=== PATIENT | female | born 1955 | race American Indian/Alaskan Native ===

== ENCOUNTER 2019-04-23 20:46 | Inpatient (IN) | payer BC ==
--- NOTE | 2019-04-23 21:08 | Event Note ---
ED Screening Note Date of service: 04/23/19 Time: 21:04 ED Screening Note: This is a 63 y.o. F. that presents to the ER with slurred speech for 2 days. Patient reports left sided facial numbness. This initial assessment/diagnostic orders/clinical plan/treatment(s) is/are subject to change based on patients health status, clinical progression and re- assessment by fellow clinical providers in the ED. Further treatment and workup at subsequent clinical providers discretion. Patient/guardian urged not to elope from the ED as their condition may be serious if not clinically assessed and managed. Initial orders include: Labs, EKG, and CT of head.
[2019-04-23 21:58] LABS: INR 1.1 (0.87-1.13)
[2019-04-23 21:59] LABS: Partial Thromboplastin Time 29.2 Sec. (24.2-36.6)
--- NOTE | 2019-04-23 22:06 | Cat Scan Report ---
CT HEAD WITHOUT CONTRAST INDICATION / CLINICAL INFORMATION: neuro deficits <6hrs or sx present upon awakening. Patient reports facial paresthesias and slurred sp eech. TECHNIQUE: All CT scans at this location are performed using CT dose reduction for ALARA by means of automated e xposure control. COMPARISON: None available. FINDINGS: HEMORRHAGE: No evidence of intracranial hemorrhage or extra-axial fluid collection. EXTRA-AXIAL SPACES: Cortical sulci, sylvian fissures and basilar cisterns have an unremarkable appear ance. VENTRICULAR SYSTEM: Mild minimal asymmetry of the lateral ventricles is noted, right larger than left . The ventricular system has an otherwise unremarkable appearance. CEREBRAL PARENCHYMA: There is a well-circumscribed area of decreased attenuation in the left ganglioc apsular region measuring about 2.7 x 1.5 x 1.2 cm in overall dimension. This likely represents a suba cute or chronic infarction. There is no associated mass effect. There is no evidence of hemorrhagic t ransformation. MIDLINE SHIFT OR HERNIATION: There is no mass effect. CEREBELLUM / BRAINSTEM: Brainstem and cerebellum have an unremarkable appearance. INTRACRANIAL VESSELS:No abnormalities are identified on this noncontrast head CT. ORBITS: visualized portions of the orbits have an unremarkable appearance. SOFT TISSUES of HEAD: No significant abnormality. CALVARIUM: Evaluation of bone windows reveals no abnormalities. PARANASAL SINUSES / MASTOID AIR CELLS: Paranasal sinuses are free from inflammatory mucosal disease. Mastoid air cells are normally pneumatized. ADDITIONAL FINDINGS: None. IMPRESSION: 1. 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 This may be either subacute, subacute or chron ic. Correlation with magnetic resonance imaging to include diffusion-weighted scans would be useful f or more accurately dating this finding if clinically warranted. 2. Otherwise negative head CT without contrast. Signer Name: Camacho Torres MD Signed: 04/23/2019 10:01 PM Workstation Name: [id number]
--- NOTE | 2019-04-23 22:11 | Emergency Department Report ---
ED Neuro Deficit HPI - General Chief Complaint: Neuro Symptoms/Deficit Stated Complaint: SLURRED SPEECH Time Seen by Provider: 04/23/19 21:04 Source: patient Mode of arrival: Ambulatory Limitations: No Limitations - History of Present Illness Initial Comments: 63-year-old female presents to ED with 2 day history of slurred speech. Patient denies any previous medical problems, denies having a PCP. Patient denies any headache, dizziness, extremity weakness or numbness. -: days(s) (2) Location: speech Presenting Symptoms: Present: Unable to Speak Clearly History of same: No Severity: moderate Improves With: none Worsens With: none On Anticoagulants: No Associated Symptoms: denies other symptoms. denies: chest pain, headaches, nausea/vomiting, shortness of breath Treatments Prior to Arrival: none - Related Data Home Medications: Home Medications Medication Instructions Recorded Confirmed Last Taken No Known Home Medications [No 04/23/19 04/23/19 Unknown Reported Home Medications] Allergies/Adverse Reactions: Allergies Allergy/AdvReac Type Severity Reaction Status Date / Time No Known Allergies Allergy Verified 04/23/19 20:52 ED Review of Systems ROS: Stated complaint: SLURRED SPEECH Other details as noted in HPI Comment: All other systems reviewed and negative Constitutional: denies: chills, fever Respiratory: denies: shortness of breath Cardiovascular: denies: chest pain Gastrointestinal: denies: nausea, vomiting Neurological: denies: headache, weakness ED Past Medical Hx - Past Medical History Previous Medical History?: No - Surgical History Past Surgical History?: No - Social History Smoking Status: Never Smoker Substance Use Type: None - Medications Home Medications: Home Medications Medication Instructions Recorded Confirmed Last Taken Type No Known Home Medications [No 04/23/19 04/23/19 Unknown History Reported Home Medications] ED Neuro Physical Exam - General Limitations: No Limitations General appearance: alert, in no apparent distress Suspected Stroke: Yes - Head Head exam: Present: atraumatic, normocephalic - Eye Eye exam: Present: normal appearance, PERRL, EOMI - ENT ENT exam: Present: mucous membranes moist - Neck Neck exam: Present: normal inspection - Respiratory Respiratory exam: Present: normal lung sounds bilaterally. Absent: respiratory distress - Cardiovascular Cardiovascular Exam: Present: normal rhythm, tachycardia - GI/Abdominal GI/Abdominal exam: Present: soft. Absent: distended, tenderness - Extremities Exam Extremities exam: Present: normal inspection - Neurological Exam Neurological exam: Present: alert, oriented X3 - NIHSS Assessment Interval: Baseline 1a. Level of Consciousness: alert/keenly responsive 1b. LOC Questions: answers both correctly 1c. LOC Commands: performs tasks correctly 2. Best Gaze: normal 3. Visual: no visual loss 4. Facial Palsy: partial paralysis 5b. Motor Arm Right: no drift 5a. Motor Arm Left: no drift 6a. Motor Leg Left: no drift 6b. Motor Leg Right: no drift 7. Limb Ataxia: absent 8. Sensory: normal 9. Best Language: no aphasia 10. Dysarthria: mild/moderate dysarthria 11. Extinction/Inattention: no abnormality Total Score: 3 Stroke Severity: Minor Stroke - Psychiatric Psychiatric exam: Present: normal affect, normal mood - Skin Skin exam: Present: warm, dry, intact, normal color ED Course Vital Signs 04/23/19 04/23/19 04/23/19 20:52 22:11 22:14 Temperature 100.4 F H Pulse Rate 105 H 85 Respiratory 16 16 16 Rate Blood Pressure 200/103 Blood Pressure 173/76 [Left] O2 Sat by Pulse 95 97 Oximetry - Lab Data Result diagrams: 04/23/19 21:32 04/23/19 21:32 Lab Results 04/23/19 04/23/19 04/23/19 Range/Units 21:32 21:32 21:32 WBC 11.9 H (4.5-11.0) K/mm3 RBC 4.58 (3.65-5.03) M/mm3 Hgb 12.7 (10.1-14.3) gm/dl Hct 38.0 (30.3-42.9) % MCV 83 (79-97) fl MCH 28 (28-32) pg MCHC 34 (30-34) % RDW 13.5 (13.2-15.2) % Plt Count 165 (140-440) K/mm3 Lymph % (Auto) 26.7 (13.4-35.0) % [place] % (Auto) 8.1 H (0.0-7.3) % Eos % (Auto) 3.2 (0.0-4.3) % Baso % (Auto) 0.5 (0.0-1.8) % Lymph # 3.2 (1.2-5.4) K/mm3 [place]agher # 1.0 H (0.0-0.8) K/mm3 Eos # 0.4 (0.0-0.4) K/mm3 Baso # 0.1 (0.0-0.1) K/mm3 Seg Neutrophils % 61.5 (40.0-70.0) % Seg Neutrophils # 7.3 (1.8-7.7) K/mm3 PT 13.9 (12.2-14.9) Sec. INR 1.10 (0.87-1.13) APTT 29.2 (24.2-36.6) Sec. Thrombin Time (15.1-19.6) Sec. Sodium 139 (137-145) mmol/L Potassium 3.2 L (3.6-5.0) mmol/L Chloride 98.6 (98-107) mmol/L Carbon Dioxide 27 (22-30) mmol/L Anion Gap 17 mmol/L BUN 12 (7-17) mg/dL Creatinine 0.9 (0.7-1.2) mg/dL Estimated GFR > 60 ml/min BUN/Creatinine Ratio 13 % Glucose 126 H (65-100) mg/dL Calcium 9.2 (8.4-10.2) mg/dL Troponin T < 0.010 (0.00-0.029) ng/mL 04/23/19 Range/Units 21:32 WBC (4.5-11.0) K/mm3 RBC (3.65-5.03) M/mm3 Hgb (10.1-14.3) gm/dl Hct (30.3-42.9) % MCV (79-97) fl MCH (28-32) pg MCHC (30-34) % RDW (13.2-15.2) % Plt Count (140-440) K/mm3 Lymph % (Auto) (13.4-35.0) % [place] % (Auto) (0.0-7.3) % Eos % (Auto) (0.0-4.3) % Baso % (Auto) (0.0-1.8) % Lymph # (1.2-5.4) K/mm3 Meagher # (0.0-0.8) K/mm3 Eos # (0.0-0.4) K/mm3 Baso # (0.0-0.1) K/mm3 Seg Neutrophils % (40.0-70.0) % Seg Neutrophils # (1.8-7.7) K/mm3 PT (12.2-14.9) Sec. INR (0.87-1.13) APTT (24.2-36.6) Sec. Thrombin Time 14.6 L (15.1-19.6) Sec. Sodium (137-145) mmol/L Potassium (3.6-5.0) mmol/L Chloride (98-107) mmol/L Carbon Dioxide (22-30) mmol/L Anion Gap mmol/L BUN (7-17) mg/dL Creatinine (0.7-1.2) mg/dL Estimated GFR ml/min BUN/Creatinine Ratio % Glucose (65-100) mg/dL Calcium (8.4-10.2) mg/dL Troponin T (0.00-0.029) ng/mL - EKG Data -: EKG Interpreted by Tx EKG shows normal: sinus rhythm, axis, intervals, QRS complexes Rate: normal Interpretation: nonspecific ST-T wave armand - Radiology Data Radiology results: report reviewed, image reviewed - Medical Decision Making 63 yo F w/ slurred speech, onset 2 days ago. On exam, pt is dysarthric, has right-sided facial droop. Strength and sensation intact in extremities. Pt is not a tPA candidate as onset of symptoms [address] Head shows left gangliocapsular infarct. Will admit to hospitalist, Dr Vides, for further management. - Differential Diagnosis ischemic CVA, hemorrhagic CVA Critical care attestation.: If time is entered above; I have spent that time in minutes in the direct care of this critically ill patient, excluding procedure time. ED Disposition Clinical Impression: CVA (cerebral vascular accident) Disposition: DC-09 OP ADMIT IP TO THIS HOSP Is pt being admited?: Yes Condition: Stable
[2019-04-23 22:15] LABS: Basophils # (Auto) 0.1 K/mm3 (0.0-0.1); Basophils % (Auto) 0.5 % (0.0-1.8); Eosinophils # (Auto) 0.4 K/mm3 (0.0-0.4); Eosinophils % (Auto) 3.2 % (0.0-4.3); Hemoglobin 12.7 gm/dl (10.1-14.3); Lymphocytes # (Auto) 3.2 K/mm3 (1.2-5.4); Lymphocytes % (Auto) 26.7 % (13.4-35.0); Mean Corpuscular HGB Conc 34 % (30-34); Mean Corpuscular Volume 83 fl (79-97); Monocytes % (Auto) 8.1 % (0.0-7.3); Platelet Count 165 K/mm3 (140-440); Red Blood Count 4.58 M/mm3 (3.65-5.03); Red Cell Distribution Width 13.5 % (13.2-15.2)
[2019-04-23 22:23] LABS: BUN/Creatinine Ratio 13; Blood Urea Nitrogen 12 mg/dL (7-17); Calcium 9.2 mg/dL (8.4-10.2); Hemolysis Index 4
[2019-04-23] MEDS ORDERED: ASPIRIN PO ONE (22:45)
[2019-04-24] MEDS ORDERED: K-DUR PO ONE (00:06)
[2019-04-24] MEDS ORDERED: APRESOLINE IV PRN (00:37)
[2019-04-24] MEDS ORDERED: SODIUM CHLORIDE FLUSH SYRINGE 10 ML IV PRN (00:38)
[2019-04-24] MEDS ORDERED: MILK OF MAGNESIA PO PRN (00:38)
[2019-04-24] MEDS ORDERED: REGLAN PO PRN (00:38)
[2019-04-24] MEDS ORDERED: ZOFRAN IV PRN (00:38)
[2019-04-24] MEDS ORDERED: DULCOLAX PR PRN (00:38)
--- NOTE | 2019-04-24 00:55 | History and Physical Report ---
History of Present Illness Date of examination: 04/24/19 Date of admission: 04/24/2019 Chief complaint: Speech, right facial droop History of present illness: 63-year-old -[place] female with no significant past medical history who presents to [facility] ED with complaints of slurred speech and right facial droop. Patient states that she went to bed on Monday night time she was in her usual state of health. Upon waking up Monday morning she noticed that her speech was slurred, her face was on even and her body movements were slower than normal. Patient states that her son also confirmed that her speech and symmetry of the face was altered. After 2 days with no improvement of symptoms she decided to come into the ED for further evaluation and treatment. Patient states she does not have a primary care physician and has not seen a medical provider in over 30 years. Denies: n/v/d, fever, headache, alterations in vision, chest pain, or recent sick contact Past History Past Surgical History: No surgical history Social history: lives with family (lives with son) Family history: stroke (sister CVA, HTN) Medications and Allergies Allergies Allergy/AdvReac Type Severity Reaction Status Date / Time No Known Allergies Allergy Verified 04/23/19 20:52 Home Medications Medication Instructions Recorded Confirmed Last Taken Type No Known Home Medications [No 04/23/19 04/23/19 Unknown History Reported Home Medications] Active Meds: Active Medications Acetaminophen (Tylenol) 650 mg PO Q4H PRN PRN Reason: Pain, Mild (1-3) Amlodipine Besylate (Norvasc) 10 mg PO QDAY DIANA Aspirin (Aspirin) 325 mg PO QDAY DIANA Atorvastatin Calcium (Lipitor) 40 mg PO QHS DIANA Bisacodyl (Dulcolax) 10 mg [place] QDAY PRN PRN Reason: Constipation Docusate Sodium (Colace) 100 mg PO BID DIANA Enoxaparin Sodium (Lovenox) 40 mg SUB-Q QDAY DIANA Hydralazine HCl (Apresoline) 10 mg IV Q4HR PRN PRN Reason: Blood Pressure Magnesium Hydroxide (Milk Of Magnesia) 30 ml PO Q4H PRN PRN Reason: Constipation Metoclopramide HCl (Reglan) 10 mg PO Q6H PRN PRN Reason: Nausea And Vomiting Ondansetron HCl (Zofran) 4 mg IV Q8H PRN PRN Reason: Nausea And Vomiting Sodium Chloride (Sodium Chloride Flush Syringe 10 Ml) 10 ml INJ PRN PRN PRN Reason: LINE FLUSH Review of Systems All systems: negative Neurological: change in speech, other (right facial droop) Exam - Physical Exam Narrative exam: Physical exam General appearance: Present: No acute distress, alert and oriented 3, obese, well-developed -[place] adult female, right-sided facial droop - EENT Eyes: Present: PERRL, EOM ENT: hearing intact, normal dentition - Neck Neck: Present: supple, normal ROM - Respiratory Respiratory effort: Non-labored Respiratory: CTA bilaterally - Cardiovascular Heart rate: 88 (bpm) Rhythm: SR nonspecific ST-T wave changes Heart Sounds: Present: S1 & S2. Absent: rub, click - Extremities Extremities: no ischemia, pulses intact, - Peripheral Assessment Peripheral Pulses: within normal limits - Abdominal General gastrointestinal: soft, non-tender, normal bowel sounds - Integumentary Integumentary: Present: warm, dry - Musculoskeletal Musculoskeletal: normal gait -Neurological Neurological: CN II-XII grossly intact - Psychiatric Psychiatric: cooperative - Constitutional Vitals: Temp Pulse Resp BP Pulse Ox 100.4 F H 85 16 157/66 96 04/23/19 20:52 04/24/19 00:28 04/24/19 00:28 04/24/19 00:28 04/24/19 00:28 Results - Labs CBC & Chem 7: 04/23/19 21:32 04/23/19 21:32 Labs: Laboratory Last Values WBC 11.9 K/mm3 (4.5-11.0) H 04/23/19 21:32 RBC 4.58 M/mm3 (3.65-5.03) 04/23/19 21:32 Hgb 12.7 gm/dl (10.1-14.3) 04/23/19 21:32 Hct 38.0 % (30.3-42.9) 04/23/19 21:32 MCV 83 fl (79-97) 04/23/19 21:32 MCH 28 pg (28-32) 04/23/19 21:32 MCHC 34 % (30-34) 04/23/19 21:32 RDW 13.5 % (13.2-15.2) 04/23/19 21:32 Plt Count 165 K/mm3 (140-440) 04/23/19 21:32 Lymph % (Auto) 26.7 % (13.4-35.0) 04/23/19 21:32 [place] % (Auto) 8.1 % (0.0-7.3) H 04/23/19 21:32 Eos % (Auto) 3.2 % (0.0-4.3) 04/23/19 21:32 Baso % (Auto) 0.5 % (0.0-1.8) 04/23/19 21:32 Lymph # 3.2 K/mm3 (1.2-5.4) 04/23/19 21:32 [place] # 1.0 K/mm3 (0.0-0.8) H 04/23/19 21:32 Eos # 0.4 K/mm3 (0.0-0.4) 04/23/19 21:32 Baso # 0.1 K/mm3 (0.0-0.1) 04/23/19 21:32 Seg Neutrophils % 61.5 % (40.0-70.0) 04/23/19 21:32 Seg Neutrophils # 7.3 K/mm3 (1.8-7.7) 04/23/19 21:32 PT 13.9 Sec. (12.2-14.9) 04/23/19 21:32 INR 1.10 (0.87-1.13) 04/23/19 21:32 APTT 29.2 Sec. (24.2-36.6) 04/23/19 21:32 14.6 Sec. (15.1-19.6) L 04/23/19 21:32 Sodium 139 mmol/L (137-145) 04/23/19 21:32 Potassium 3.2 mmol/L (3.6-5.0) L 04/23/19 21:32 Chloride 98.6 mmol/L (98-107) 04/23/19 21:32 Carbon Dioxide 27 mmol/L (22-30) 04/23/19 21:32 17 mmol/L 04/23/19 21:32 BUN 12 mg/dL (7-17) 04/23/19 21:32 0.9 mg/dL (0.7-1.2) 04/23/19 21:32 Estimated GFR > 60 ml/min 04/23/19 21:32 13 % 04/23/19 21:32 Glucose 126 mg/dL (65-100) H 04/23/19 21:32 Calcium 9.2 mg/dL (8.4-10.2) 04/23/19 21:32 < 0.010 ng/mL (0.00-0.029) 04/23/19 21:32 - Imaging and Cardiology Imaging and Cardiology: FINDINGS: HEMORRHAGE: No evidence of intracranial hemorrhage or extra-axial fluid collection. EXTRA-AXIAL SPACES: Cortical sulci, sylvian fissures and basilar cisterns have an unremarkable appearance. VENTRICULAR SYSTEM: Mild minimal asymmetry of the lateral ventricles is noted, right larger than left. The ventricular system has an otherwise unremarkable appearance. CEREBRAL PARENCHYMA: There is a well-circumscribed area of decreased attenuation in the left gangliocapsular region measuring about 2.7 x 1.5 x 1.2 cm in overall dimension. This likely represents a subacute or chronic infarction. There is no associated mass effect. There is no evidence of hemorrhagic transformation. MIDLINE SHIFT OR HERNIATION: There is no mass effect. CEREBELLUM / BRAINSTEM: Brainstem and cerebellum have an unremarkable appearance. INTRACRANIAL VESSELS:No abnormalities are identified on this noncontrast head CT. ORBITS: visualized portions of the orbits have an unremarkable appearance. SOFT TISSUES of HEAD: No significant abnormality. CALVARIUM: Evaluation of bone windows reveals no abnormalities. PARANASAL SINUSES / MASTOID AIR CELLS: Paranasal sinuses are free from inflammatory mucosal disease. Mastoid air cells are normally pneumatized. ADDITIONAL FINDINGS: None. IMPRESSION: 1. 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 This may be either subacute, subacute or chronic. Correlation with magnetic resonance imaging to include diffusion-weighted scans would be useful for more accurately dating this finding if clinically warranted. 2. Otherwise negative head CT without contrast. Assessment and Plan Assessment and plan: 63-year-old -[place] female with no significant past medical history who presents to [facility] ED with complaints of slurred speech and right facial droop. Patient states that she went to bed on Monday night time she was in her usual state of health. Upon waking up Monday morning she noticed that her speech was slurred, her face was on even and her body movements were slower than normal. Patient states that her son also confirmed that her speech and symmetry of the face was altered. After 2 days with no improvement of symptoms she decided to come into the ED for further evaluation and treatment. Patient states she does not have a primary care physician and has not seen a medical provider in over 30 years. CVA -Initiate is stroke protocol -Initiate neuro checks per protocol -Slurred speech and rt facial droop -Not candidate for TPA; symptoms started 2 days ago -No need to allow for permissive HTN -CT Head showed Left gangliocapsular deep infarction -MRI/MRA Head/Brain, bilateral carotid Doppler, and echo pending -Neurology consult pending -PT/OT eval pending Hypertension -Continue to monitor BP -Hx of HTN non compliant with antihypertensive meds; pt has not seen PCP in over 30 yrs -Start Norvasc 10mg daily -IV hydralazine when necessary Leukocytosis -WBC 11.9 -TMAX 100.4 -Blood and Urine Culture pending -Will consider start abx pending UA and CXR Hypokalemia -3.2 on admission -Repleted -Continue to monitor electrolytes, replete prn DVT PPX -On Lovenox -On SCD's Advance Directives: No VTE prophylaxis?: Chemical Plan of care discussed with patient/family: Yes
[2019-04-24 01:27] LABS: Amphetamine Screen,Urine PRESUMPTIVE NEGATIVE; Benzodiazepines Screen,Urine PRESUMPTIVE NEGATIVE; Cannabinoid Screen,Urine PRESUMPTIVE NEGATIVE; Cocaine Screen,Urine PRESUMPTIVE NEGATIVE; Methadone Screen,Urine PRESUMPTIVE NEGATIVE; Opiate Screen,Urine PRESUMPTIVE NEGATIVE
[2019-04-24 01:30] LABS: Bilirubin,Urine NEG (Negative); Blood,Urine NEG (Negative); Color,Urine Yellow (Yellow); Urobilinogen,Urine < 2.0 mg/dL (<2.0)
[2019-04-24 01:37] LABS: Mucus,Urine Few /HPF; RBC,Urine < 1.0 /HPF (0.0-6.0); WBC,Urine < 1.0 /HPF (0.0-6.0)
--- NOTE | 2019-04-24 03:47 | XRay Report ---
CHEST 2 VIEWS 0047 INDICATION / CLINICAL INFORMATION: Slurred speech, right facial droop COMPARISON: None available. FINDINGS: SUPPORT DEVICES: None. HEART / MEDIASTINUM: No significant abnormality. LUNGS / PLEURA: No significant pulmonary or pleural abnormality. No pneumothorax. ADDITIONAL FINDINGS: No significant additional findings. IMPRESSION: No significant acute abnormality Signer Name: Devonte Gerardo MD Signed: 04/24/2019 3:43 AM Workstation Name: [id number]
[2019-04-24] MEDS ORDERED: ASPIRIN PO SCH (10:00)
--- NOTE | 2019-04-24 13:39 | Vascular Lab Report ---
BILATERAL CAROTID DOPPLER ULTRASOUND INDICATION : stroke TECHNIQUE: Grayscale and color Doppler imaging performed through the neck. COMPARISON: None FINDINGS: Right: There is moderate soft plaque in the carotid bulb. Peak systolic velocity in the CCA is 66 c m/s with end-diastolic velocity of 20 cm/s. Peak systolic velocity in the proximal ICA is 91 cm/s wit h end-diastolic velocity of 35 cm/s. ICA to CCA ratio is less than 2. There is antegrade flow in the ECA and the vertebral artery. Left: There is no significant atherosclerotic disease. Peak systolic velocity in the CCA is 82 cm/s w ith end-diastolic velocity of 17 cm/s. Peak systolic velocity in the proximal ICA is 104 cm/s with en d-diastolic velocity of 37 cm/s. ICA to CCA ratio is less than 2. There is antegrade flow in the ECA and the vertebral artery. IMPRESSION: No hemodynamically significant stenosis by NASCET criteria. There is less than 50% lumina l narrowing throughout both carotid systems. Signer Name: Isaac House Jr, MD Signed: 04/24/2019 1:35 PM Workstation Name: [id number]
[2019-04-24] MEDS: LOVENOX SUB-Q SCH (14:09)
[2019-04-24] MEDS: NORVASC PO SCH (14:09)
[2019-04-24] MEDS: COLACE PO SCH ×2 (14:09→22:02)
--- NOTE | 2019-04-24 15:05 | Magnetic Resonance Report ---
MRI BRAIN WITHOUT CONTRAST INDICATION / CLINICAL INFORMATION: stroke. TECHNIQUE: Multisequence, multiplanar images were obtained. COMPARISON: CT head dated 04/23/2019 FINDINGS: CEREBRAL and CEREBELLAR HEMISPHERES: A 2.0 x 1.9 x 2.1 cm area of diffusion restriction is identified in the left ganglial capsular region consistent with subacute ischemia. This infarct extends from th e left subinsular region to the left ruvalcaba radiata. No acute hemorrhage. Minimal nonspecific chroni c periventricular white matter changes are also identified which probably represent chronic microvasc ular ischemic change. No chronic infarct. No extra-axial fluid collection. VENTRICLES: Normal in size and configuration for age. VISUALIZED ORBITS: No significant abnormality. VISUALIZED PARANASAL SINUSES: No significant abnormality. ADDITIONAL FINDINGS: None. IMPRESSION: 2.0 x 1.9 x 2.1 cm area of subacute ischemia in the left ganglial capsular region. No evidence for he morrhage. No significant change since the CT dated 04/23/2019. MRA HEAD WITHOUT CONTRAST HISTORY: Stroke COMPARISON: None. TECHNIQUE: Routine MRA of the head is performed. 3-D/MIP reformats postprocessed. CONTRAST: None. FINDINGS: Intracranial vertebral arteries: No significant abnormality. Basilar artery: No significant abnormality. Posterior cerebral arteries: No significant abnormality. Intracranial internal carotid arteries: No significant abnormality. Anterior cerebral arteries: No significant abnormality. Middle cerebral arteries: No significant abnormality. Additional findings: None. IMPRESSION: Unremarkable MRA head. No large vessel occlusion, high-grade stenosis or aneurysm is identified. Signer Name: Isaac House Jr, MD Signed: 04/24/2019 3:00 PM Workstation Name: [id number]
--- NOTE | 2019-04-24 15:05 | Consultation ---
History of Present Illness Consult date: 04/24/19 Reason for Consult: Stroke Chief complaint: Slurred speech, facial droop History of present illness: Patient is a 63-year-old woman with no past medical history, and has not been to a physician in several years. The patient awoke Monday morning with symptoms of right facial droop and slurred speech. Patient was ultimately brought to the ER for further evaluation by family. Patient notably had a 100.4 fever during the course of this admission thus far. Symptoms have not significantly changed since onset on Monday. Past History Past Surgical History: No surgical history Social history: lives with family (lives with son) Family history: stroke (sister CVA, HTN) Medications and Allergies Allergies Allergy/AdvReac Type Severity Reaction Status Date / Time No Known Allergies Allergy Verified 04/23/19 20:52 Home Medications Medication Instructions Recorded Confirmed Last Taken Type No Known Home Medications [No 04/23/19 04/23/19 Unknown History Reported Home Medications] Active Meds: Active Medications Acetaminophen (Tylenol) 650 mg PO Q4H PRN PRN Reason: Pain, Mild (1-3) Amlodipine Besylate (Norvasc) 10 mg PO QDAY [facility] Last Admin: 04/24/19 14:09 Dose: 10 mg Documented by: Aspirin (Aspirin) 325 mg PO QDAY [facility] Last Admin: 04/24/19 14:09 Dose: 325 mg Documented by: Atorvastatin Calcium (Lipitor) 40 mg PO QHS [facility] Bisacodyl (Dulcolax) 10 mg MD QDAY PRN PRN Reason: Constipation Docusate Sodium (Colace) 100 mg PO BID [facility] Last Admin: 04/24/19 14:09 Dose: 100 mg Documented by: Enoxaparin Sodium (Lovenox) 40 mg SUB-Q QDAY [facility] Last Admin: 04/24/19 14:09 Dose: 40 mg Documented by: Hydralazine HCl (Apresoline) 10 mg IV Q4H PRN PRN Reason: Blood Pressure Magnesium Hydroxide (Milk Of Magnesia) 30 ml PO Q4H PRN PRN Reason: Constipation Metoclopramide HCl (Reglan) 10 mg PO Q6H PRN PRN Reason: Nausea And Vomiting Ondansetron HCl (Zofran) 4 mg IV Q8H PRN PRN Reason: Nausea And Vomiting Sodium Chloride (Sodium Chloride Flush Syringe 10 Ml) 10 ml IV PRN PRN PRN Reason: LINE FLUSH Review of Systems All systems: negative Neurological: change in speech Physical Examination - Vital Signs Vital Signs: Vital Signs Temp Pulse Resp BP Pulse Ox 100.4 F H 105 H 16 200/103 95 04/23/19 20:52 04/23/19 20:52 04/23/19 20:52 04/23/19 20:52 04/23/19 20:52 - Physical Exam Narrative exam: Patient is awake, alert, oriented is 4. Follows complex commands. Noted to have significant dysarthria. No aphasia noted. Pupils equal, round, reactive to light, visual aaron full, tongue midline, noted to have right facial droop, bilaterally intact to light touch. Right upper and lower extremity strength is 4/5, left upper and lower extremity strength is 5 out of 5. Bilaterally intact to light touch. Bilaterally intact to finger to nose and heel to silver. Reflexes 2+ throughout. - Constitutional General appearance: comfortable - EENT EENT: Present: ATNC, PERRL, mucous membranes moist, hearing intact, vision intact - Respiratory Respiratory: Present: lungs clear, normal breath sounds - Cardiovascular Cardiovascular: Present: regular rate, normal S1, normal S2 Extremities: Present: no peripheral edema bilatateraly, no clubbing, cyanosis - Gastrointestinal Gastrointestinal: Present: normoactive bowel sounds, soft, non-tender - Integumentary Integumentary: Present: normal - Psychiatric Psychiatric: Present: mood/affect appropriate - Level of Consciousness 1a. Level of Consciousness: alert/keenly responsive - LOC Questions 1b. LOC Questions: answers both correctly - LOC Command 1c. LOC Commands: performs tasks correctly - Best Gaze 2. Best Gaze: normal - Visual 3. Visual: no visual loss - Facial Palsy 4. Facial Palsy: minor paralysis - Motor Arm 5a. Motor Arm Left: no drift 5b. Motor Arm Right: no drift - Motor Leg 6a. Motor Leg Left: no drift 6b. Motor Leg Right: no drift - Limb Ataxia 7. Limb Ataxia: absent - Sensory 8. Sensory: normal - Best Language 9. Best Language: no aphasia - Dysarthria 10. Dysarthria: mild/moderate dysarthria - Extinction and Inattention 11. Extinction/Inattention: no abnormality - Scoring Total Score: 2 Stroke Severity: Minor Stroke Results - Laboratory Findings CBC and BMP: 04/23/19 21:32 04/23/19 21:32 Abnormal Lab Findings: Abnormal Labs 04/23/19 04/23/19 04/23/19 21:32 21:32 21:32 WBC 11.9 H [place] % (Auto) 8.1 H [place] # 1.0 H Thrombin Time 14.6 L Potassium 3.2 L Glucose 126 H Assessment and Plan Patient is a 63-year-old woman with no status past medical history, who presents with a 2 day history of slurred speech and right facial droop. According patient's clinical findings, the patient has an acute ischemic stroke. MRI rev ealed left subcortical stroke. Plan: 1. Stroke: - MRI revealed left subcortical stroke. MRA did not reveal any significant stenosis in the anterior circulation, has mild to moderate stenosis noted in the left [employer]IAN. Carotid ultrasound did not reveal any significant stenosis. Echocardiogram pending. - As patient was noted to have increased white cell count and a fever on admission, depending on results of TTE, will consider patient for KEMAR to evaluate for possibility of endocarditis. - Aspirin 81 mg daily. Atorvastatin 40 mg daily. PT/OT/ST Telemetry monitoring while in-house. Lipid profile pending. Check hemoglobin A1c. DVT prophylaxis: Recommend Lovenox. 2. Blood pressure: - Recommend target of normotension, as it has been >48 hours since onset of symptoms. - Will continue to follow patient. Thank you for allowing me to take part in the care of this patient. Steffen Santos MD Neurology
--- NOTE | 2019-04-24 18:46 | Event Note ---
Date: 04/24/19 63-year-old -Monegas[place] female with no significant past medical history who presents to [facility] ED with complaints of slurred speech and right facial droop. Patient states that she went to bed on Monday night time she was in her usual state of health. Upon waking up Monday morning she noticed that her speech was slurred, her face was on even and her body movements were slower than normal. Patient states that her son also confirmed that her speech and symmetry of the face was altered. After 2 days with no improvement of symptoms she decided to come into the ED for further evaluation and treatment. Patient states she does not have a primary care physician and has not seen a medical provider in over 30 years. CVA -Initiate is stroke protocol -Initiate neuro checks per protocol -Slurred speech and rt facial droop -Not candidate for TPA; symptoms started 2 days ago -No need to allow for permissive HTN -CT Head showed Left gangliocapsular deep infarction -MRI/MRA Head/Brain, bilateral carotid Doppler, and echo pending -Neurology consult pending -PT/OT eval pending Hypertension -Continue to monitor BP -Hx of HTN non compliant with antihypertensive meds; pt has not seen PCP in over 30 yrs -Start Norvasc 10mg daily -IV hydralazine when necessary Leukocytosis -WBC 11.9 -TMAX 100.4 -Blood and Urine Culture pending -Will consider start abx pending UA and CXR Hypokalemia -3.2 on admission -Repleted -Continue to monitor electrolytes, replete prn DVT PPX -On Lovenox -On SCD's
[2019-04-24] MEDS: TYLENOL PO PRN (22:02)
[2019-04-25 06:02] LABS: Chol/HDL Ratio 3.18 %
[2019-04-25 07:28] LABS: Basophils % (Auto) 0.6 % (0.0-1.8); Eosinophils # (Auto) 0.5 K/mm3 (0.0-0.4); Eosinophils % (Auto) 5.5 % (0.0-4.3); Hemoglobin 11.6 gm/dl (10.1-14.3); Lymphocytes # (Auto) 2.3 K/mm3 (1.2-5.4); Lymphocytes % (Auto) 27.8 % (13.4-35.0); Mean Corpuscular HGB Conc 34 % (30-34); Mean Corpuscular Volume 82 fl (79-97); Monocytes # (Auto) 0.7 K/mm3 (0.0-0.8); Monocytes % (Auto) 8.3 % (0.0-7.3); Red Blood Count 4.13 M/mm3 (3.65-5.03); Red Cell Distribution Width 13.7 % (13.2-15.2)
[2019-04-25 08:21] LABS: Platelet Count 170 K/mm3 (140-440)
[2019-04-25] MEDS: COLACE PO SCH ×2 (10:11→22:07)
[2019-04-25] MEDS: HALFPRIN EC PO SCH (10:11)
[2019-04-25] MEDS: LOVENOX SUB-Q SCH (10:12)
[2019-04-25] MEDS: NORVASC PO SCH (10:12)
--- NOTE | 2019-04-25 10:48 | Progress Note ---
Assessment and Plan Patient is a 63-year-old woman with no status past medical history, who presents with a 2 day history of slurred speech and right facial droop. According patient's clinical findings, the patient has an acute ischemic stroke. MRI revealed left subcortical stroke. Plan: 1. Stroke: - MRI revealed left subcortical stroke. MRA did not reveal any significant stenosis in the anterior circulation, has mild stenosis noted in the left [employer] FUNDRAISER. Carotid ultrasound did not reveal any significant stenosis. Echocardiogram: EF 50-55%, LA normal size, bubble study -ve. - Uncertain as to etiology of stroke, may be cryptogenic vs lacunar, however only has mild white matter disease on FLAIR sequence, which further raises possibility of embolic stroke. - As patient was noted to have increased white cell count and a fever on admission, recommend patient for KEMAR to evaluate for possibility of endocarditis. - Aspirin 81 mg daily. Atorvastatin 40 mg daily. PT/OT/ST Telemetry monitoring while in-house. LDL 77 Hemoglobin A1c 5.7. DVT prophylaxis: Recommend Lovenox. 2. Blood pressure: - Recommend target of normotension, as it has been >48 hours since onset of symptoms. - Will continue to follow patient. Thank you for allowing me to take part in the care of this patient. Steffen Santos MD Neurology Subjective Date of service: 04/25/19 Principal diagnosis: Stroke Interval history: No acute events overnight. Objective - Exam Narrative Exam: Patient is awake, alert, oriented is 4. Follows complex commands. Noted to have dysarthria. No aphasia noted. Pupils equal, round, reactive to light, visual aaron full, tongue midline, noted to have right facial droop, b ilaterally intact to light touch. Right upper and lower extremity strength is 4/5, left upper and lower extremity strength is 5 out of 5. Bilaterally intact to light touch. Bilaterally intact to finger to nose and heel to silver. Reflexes 2+ throughout. - Vital Sign Vital Signs - 12hr 04/25/19 04/25/19 04/25/19 00:00 04:00 04:12 Temperature 98.3 F 98.6 F Pulse Rate 74 70 70 Respiratory 16 16 Rate Blood Pressure 152/78 Blood Pressure 168/56 [Right] O2 Sat by Pulse 95 97 Oximetry 04/25/19 04/25/19 08:43 10:12 Temperature 98.6 F Pulse Rate 77 77 Respiratory 20 Rate Blood Pressure 143/71 143/71 Blood Pressure [Right] O2 Sat by Pulse 95 Oximetry - General Apperance Constitutional: comfortable - EENT EENT: ATNC, PERRL, mucous membranes moist, hearing intact, vision intact - Respiratory Respiratory: lungs clear, normal breath sounds - Cardiovascular Cardiovascular: regular rate, normal S1, normal S2 Extremities: no peripheral edema bilat, no clubbing, cyanosis - Gastrointestinal Gastrointestinal: normoactive bowel sounds, soft, non-tender - Integumentary Integumentary: normal - Psychiatric Psychiatric: mood/affect appropriate - Laboratory Findings CBC and BMP: 04/25/19 07:07 04/25/19 05:05 Abnormal Lab Findings: Abnormal Labs 04/23/19 04/23/19 04/23/19 21:32 21:32 21:32 WBC 11.9 H [place] % (Auto) 8.1 H Eos % (Auto) [place] # 1.0 H Eos # Thrombin Time 14.6 L Potassium 3.2 L Glucose 126 H HDL Cholesterol 04/25/19 04/25/19 05:05 07:07 WBC [place] % (Auto) 8.3 H Eos % (Auto) 5.5 H [place] # Eos # 0.5 H Thrombin Time Potassium Glucose HDL Cholesterol 38 L
--- NOTE | 2019-04-25 11:46 | Progress Note ---
Assessment and Plan Assessment and plan: --Acute ischemic Lt CVA Right-sided weakness, Not a candidate for TPA Aspirin and statin Workup so far: CT head; left gangliocapsular infarction, subacute versus acute or chronic MRI brain; 2.0 x 1.9 x 2.1 cm subacute ischemia of the left ganglia capsular region no hemorrhage MRA brain; unremarkable study, no large vessel occlusion Carotid Doppler; hemodynamically significant stenosis, less than 50% stenosis Echocardiogram; EF 50-55% Neurology following, recommend KEMAR to r/o endocarditis [patient had low-grade fever on admission, and mild leukocytosis resolved] Cultures negative to date --Hypertension; moderate control Continue current antihypertensives and when necessary medications --Dyslipidemia; statin --Hypokalemia; corrected --DVT PPX; Lovenox Consults and recommendations noted and appreciated History Interval history: Patient seen and examined medical records reviewed The patient feels slightly better, states significantly improved Neuro workup was reviewed, neurologist recommend KEMAR To rule out endocarditis Patient is alert awake oriented Vital signs noted Hospitalist Physical - Constitutional Vitals: Temp Pulse Resp BP Pulse Ox 98.6 F 77 20 143/71 95 04/25/19 08:43 04/25/19 10:12 04/25/19 08:43 04/25/19 10:12 04/25/19 08:43 General appearance: Present: no acute distress, well-nourished - EENT Eyes: Present: PERRL, EOM intact - Neck Neck: Present: supple, normal ROM - Respiratory Respiratory effort: normal Respiratory: bilateral: diminished, negative: rales, rhonchi, wheezing - Cardiovascular Rhythm: regular Heart Sounds: Present: S1 & S2 - Extremities Extremities: no ischemia, No edema - Abdominal General gastrointestinal: soft, non-tender, non-distended, normal bowel sounds - Integumentary Integumentary: Present: clear, warm - Psychiatric Psychiatric: appropriate mood/affect, cooperative - Neurologic Neurologic: other (acute CVA with right-sided weakness, dysarthria s ignificantly improved) Results - Labs CBC & Chem 7: 04/25/19 07:07 04/25/19 05:05 Labs: Laboratory Last Values WBC 8.4 K/mm3 (4.5-11.0) 04/25/19 07:07 RBC 4.13 M/mm3 (3.65-5.03) 04/25/19 07:07 Hgb 11.6 gm/dl (10.1-14.3) 04/25/19 07:07 Hct 34.0 % (30.3-42.9) 04/25/19 07:07 MCV 82 fl (79-97) 04/25/19 07:07 MCH 28 pg (28-32) 04/25/19 07:07 MCHC 34 % (30-34) 04/25/19 07:07 RDW 13.7 % (13.2-15.2) 04/25/19 07:07 Plt Count 170 K/mm3 (140-440) 04/25/19 07:07 Lymph % (Auto) 27.8 % (13.4-35.0) 04/25/19 07:07 [place] % (Auto) 8.3 % (0.0-7.3) H 04/25/19 07:07 Eos % (Auto) 5.5 % (0.0-4.3) H 04/25/19 07:07 Baso % (Auto) 0.6 % (0.0-1.8) 04/25/19 07:07 Lymph # 2.3 K/mm3 (1.2-5.4) 04/25/19 07:07 [place] # 0.7 K/mm3 (0.0-0.8) 04/25/19 07:07 Eos # 0.5 K/mm3 (0.0-0.4) H 04/25/19 07:07 Baso # 0.0 K/mm3 (0.0-0.1) 04/25/19 07:07 Seg Neutrophils % 57.8 % (40.0-70.0) 04/25/19 07:07 Seg Neutrophils # 4.9 K/mm3 (1.8-7.7) 04/25/19 07:07 PT 13.9 Sec. (12.2-14.9) 04/23/19 21:32 INR 1.10 (0.87-1.13) 04/23/19 21:32 APTT 29.2 Sec. (24.2-36.6) 04/23/19 21:32 14.6 Sec. (15.1-19.6) L 04/23/19 21:32 Sodium 139 mmol/L (137-145) 04/23/19 21:32 Potassium 3.6 mmol/L (3.6-5.0) 04/25/19 05:05 Chloride 98.6 mmol/L (98-107) 04/23/19 21:32 Carbon Dioxide 27 mmol/L (22-30) 04/23/19 21:32 17 mmol/L 04/23/19 21:32 BUN 12 mg/dL (7-17) 04/23/19 21:32 0.9 mg/dL (0.7-1.2) 04/23/19 21:32 Estimated GFR > 60 ml/min 04/23/19 21:32 13 % 04/23/19 21:32 Glucose 126 mg/dL (65-100) H 04/23/19 21:32 5.7 % (4-6) 04/24/19 15:26 Calcium 9.2 mg/dL (8.4-10.2) 04/23/19 21:32 < 0.010 ng/mL (0.00-0.029) 04/24/19 02:43 Triglycerides 91 mg/dL (2-149) 04/25/19 05:05 Cholesterol 121 mg/dL (50-199) 04/25/19 05:05 77 mg/dL (50-130) 04/25/19 05:05 38 mg/dL (40-59) L 04/25/19 05:05 3.18 % 04/25/19 05:05 Yellow (Yellow) 04/24/19 00:58 Slightly-cloudy (Clear) 04/24/19 00:58 5.0 (5.0-7.0) 04/24/19 00:58 Ur Specific [place] 1.026 (1.003-1.030) 04/24/19 00:58 30 mg/dl mg/dL (Negative) 04/24/19 00:58 Neg mg/dL (Negative) 04/24/19 00:58 Tr mg/dL (Negative) 04/24/19 00:58 Neg (Negative) 04/24/19 00:58 Neg (Negative) 04/24/19 00:58 Neg (Negative) 04/24/19 00:58 < 2.0 mg/dL (<2.0) 04/24/19 00:58 Ur Leukocyte Esterase Tr (Negative) 04/24/19 00:58 < 1.0 /HPF (0.0-6.0) 04/24/19 00:58 < 1.0 /HPF (0.0-6.0) 04/24/19 00:58 U Epithel Cells (Auto) 3.0 /HPF (0-13.0) 04/24/19 00:58 Few /HPF 04/24/19 00:58 Presumptive negative 04/24/19 00:58 Presumptive negative 04/24/19 00:58 Ur Barbiturates Screen Presumptive negative 04/24/19 00:58 Ur Phencyclidine Scrn Presumptive negative 04/24/19 00:58 Ur Amphetamines Screen Presumptive negative 04/24/19 00:58 U Benzodiazepines Scrn Presumptive negative 04/24/19 00:58 Presumptive negative 04/24/19 00:58 U Marijuana (THC) Screen Presumptive negative 04/24/19 00:58 Disclamer 04/24/19 00:58 Active Medications - Current Medications Current Medications: Generic Name Dose Route Start Last Admin Trade Name Freq PRN Reason Stop Dose Admin Acetaminophen 650 mg 04/24/19 00:38 04/24/19 22:02 Tylenol PO 650 mg Q4H PRN Administration Pain, Mild (1-3) Amlodipine Besylate 10 mg 04/24/19 10:00 04/25/19 10:12 Norvasc PO 10 mg QDAY DIANA Administration Aspirin 81 mg 04/25/19 10:00 04/25/19 10:11 Halfprin Ec PO 81 mg QDAY DIANA Administration Atorvastatin Calcium 10 mg 04/25/19 22:00 Lipitor PO QHS DIANA Bisacodyl 10 mg 04/24/19 00:[address] QDAY PRN Constipation Docusate Sodium 100 mg 04/24/19 10:00 04/25/19 10:11 Colace PO 100 mg BID DIANA Administration Enoxaparin Sodium 40 mg 04/24/19 10:00 04/25/19 10:12 Lovenox SUB-Q 40 mg QDAY DIANA Administration Hydralazine HCl 10 mg 04/24/19 00:37 Apresoline IV Q4H PRN Blood Pressure Magnesium Hydroxide 30 ml 04/24/19 00:38 Milk Of Magnesia PO Q4H PRN Constipation Metoclopramide HCl 10 mg 04/24/19 00:38 Reglan PO Q6H PRN Nausea And Vomiting Ondansetron HCl 4 mg 04/24/19 00:38 Zofran IV Q8H PRN Nausea And Vomiting Sodium Chloride 10 ml 04/24/19 00:38 Sodium Chloride Flush Syringe 10 Ml IV PRN PRN LINE FLUSH
[2019-04-25] MEDS: TYLENOL PO PRN (22:07)
[2019-04-26] MEDS ORDERED: HURRICAINE ONE 20% TOPICAL SPRAY MM NR (08:00)
[2019-04-26] MEDS: LOVENOX SUB-Q SCH (09:02)
[2019-04-26] MEDS: COLACE PO SCH (09:02)
[2019-04-26] MEDS ORDERED: DIPRIVAN 10 MG/ML IV ONE ×2 (10:01→10:02)
[2019-04-26] MEDS ORDERED: HURRICAINE ONE 20% TOPICAL SPRAY MM (10:07)
--- NOTE | 2019-04-26 10:09 | Anesthesia Consultation ---
Anesthesia Consult and Med Hx Date of service: 04/26/19 - Airway Anesthetic Teeth Evaluation: Poor (missing upper and lower incisors. Denies loose teeth.) ROM Head & Neck: Adequate Mental/Hyoid Distance: Adequate Mallampati Class: Class III Intubation Access Assessment: Possibly Difficult - Pulmonary Exam CTA: Yes - Cardiac Exam Cardiac Exam: RRR - Pre-Operative Health Status ASA Pre-Surgery Classification: ASA3 Proposed Anesthetic Plan: MAC - Pulmonary Hx Smoking: Yes (former smoker; quit 40yrs ago) Hx Respiratory Symptoms: No - Cardiovascular System Hx Hypertension: Yes (noted in chart; patient denies) Hx Heart Attack/AMI: No Hx Percutaneous Transluminal Coronary Angioplasty (PTCA): No Hx Cardia Arrhythmia: No - Central Nervous System CVA: Yes (acute CVA this admission w/ R facial droop (still present)) - Gastrointestinal Hx Gastroesophageal Reflux Disease: No - Endocrine Hx Renal Disease: No Hx Liver Disease: No Hx Insulin Dependent Diabetes: No Hx Non-Insulin Dependent Diabetes: No Hx Thyroid Disease: No - Other Systems Hx Obesity: Yes - Additional Comments Anesthesia Medical History Comments: No prior GA. No FHx anesthetic complications.
--- NOTE | 2019-04-26 10:09 | Anesthesia Day of Surgery ---
Anesthesia Day of Surgery - Day of Surgery Patient Examined: Yes Patient H&P Reviewed: Yes Patient is NPO: Yes
[2019-04-26] MEDS ORDERED: NACL 0.9% 500 ML 500 ML ONE (10:11)
[2019-04-26 10:56] VITALS: BP 167/78
[2019-04-26] MEDS ORDERED: NACL 0.9% 500 ML 500 ML IV SCH (11:30)
[2019-04-26] MEDS: HALFPRIN EC PO SCH (13:56)
[2019-04-26] MEDS: NORVASC PO SCH (13:57)
--- NOTE | 2019-04-26 15:25 | Discharge Summary ---
Providers - Providers Date of Admission: 04/24/19 02:54 Date of discharge: 04/26/19 Attending physician: JOSE PANDA 04/24/19 00:38 Consult to Case Management [CONS] Routine Services Needed at Discharge: Physical Therapy Notified:: Case management Occupational Therapy Evaluate and Treat [CONS] Routine Comment: Reason For Exam: Neuro deficits Physical Therapy Evaluation and Treat [CONS] Routine Comment: Reason For Exam: Neuro deficits 04/24/19 00:57 Consult to Physician [CONS] Routine Comment: Consulting Provider: DOM HERNANDEZ Physician Instructions: Reason For Exam: Left gangliocapsular deep infarction seen CT 04/24/19 15:11 Speech Therapy Evaluation and Treat [CONS] Routine Reason For Exam: Stroke [facility] Condition: Stable Hospital course: 63-year-old -Dominican female with no significant past medical history who presents to [facility] ED with complaints of slurred speech and right facial droop. Patient states that she went to bed on Monday night time she was in her usual state of health. Upon waking up Monday morning she noticed that her speech was slurred, her face was on even and her body movements were slower than normal. Patient states that her son also confirmed that her speech and symmetry of the face was altered. After 2 days with no improvement of symptoms she decided to come into the ED for further evaluation and treatment. Patient states she does not have a primary care physician and has not seen a medical provider in over 30 years. Discharge Diagnosis: --Acute ischemic Lt CVA Right-sided weakness, Not a candidate for TPA Aspirin and statin Workup so far: CT head; left gangliocapsular infarction, subacute versus acute or chronic MRI brain; 2.0 x 1.9 x 2.1 cm subacute ischemia of the left ganglia capsular region no hemorrhage MRA brain; unremarkable study, no large vessel occlusion Carotid Doppler; hemodynamically significant stenosis, less than 50% stenosis Echocardiogram; EF 50-55% Neurology following, recommend KEMAR to r/o endocarditis [patient had low-grade fever on admission, and mild leukocytosis resolved] Cultures negative to date --Hypertension; moderate control Continue current antihypertensives and when necessary medications --Dyslipidemia; statin --Hypokalemia; corrected --DVT PPX; Lovenox Consults and recommendations noted and appreciated Disposition: -01 TO HOME OR SELFCARE Time spent for discharge: 32 min Core Measure Documentation - Palliative Care Palliative Care/ Comfort Measures: Not Applicable - Core Measures Any of the following diagnoses?: stroke - Stroke Discharge Requirements Statin for LDL = or >70 mg/dl on DC: Yes Anticoag for atrial fib/atrial flutter: Not Applicable Antithrombotic for ischemic stroke: Yes Exam - Constitutional Vitals: Temp Pulse Resp BP Pulse Ox 99 F 74 21 167/78 96 04/26/19 10:40 04/26/19 13:57 04/26/19 10:55 04/26/19 13:57 04/26/19 10:55 General appearance: Present: no acute distress, well-nourished - EENT Eyes: Present: PERRL, EOM intact - Neck Neck: Present: supple, normal ROM - Respiratory Respiratory effort: normal Respiratory: bilateral: diminished, negative: rales, rhonchi, wheezing - Cardiovascular Rhythm: regular Heart Sounds: Present: S1 & S2 - Extremities Extremities: no ischemia, No edema - Abdominal General gastrointestinal: Present: soft, non-tender, non-distended, normal bowel sounds - Integumentary Integumentary: Present: clear, warm - Musculoskeletal Musculoskeletal: strength equal bilaterally - Psychiatric Psychiatric: appropriate mood/affect, cooperative - Neurologic Neurologic: CNII-XII intact, other ( minimal residual weakness) Plan Activity: advance as tolerated, fall precautions Diet: other (cardiac diet) Additional Instructions: Outpatient speech therapy. Advised to see private technology professional for out patient continuos cardiac monitoring Follow up with: LUMA BARROW MD [Referring] - [facility] - 3-5 Days CHRISSIE WHALEN MD [Staff Physician] - 7 Days Prescriptions: Docusate Sodium [Colace CAP] 100 mg PO BID PRN #20 capsule PRN Reason: Constipation Aspirin EC [Halfprin EC] 81 mg PO QDAY #30 tablet AtorvaSTATin [Lipitor] 10 mg PO QHS #30 tablet amLODIPine [Norvasc] 10 mg PO QDAY #30 tablet Other Discharge Orders: Speech Therapy (Amb) Location: None Selected
--- NOTE | 2019-04-26 19:41 | Progress Note ---
Assessment and Plan Patient is a 63-year-old woman with no status past medical history, who presents with a 2 day history of slurred speech and right facial droop. According patient's clinical findings, the patient has an acute ischemic stroke. MRI revealed left subcortical stroke. Plan: 1. Stroke: - MRI revealed left subcortical stroke. MRA did not reveal any significant stenosis in the anterior circulation, has mild stenosis noted in the left [employer]. Carotid ultrasound did not reveal any significant stenosis. Echocardiogram: EF 50-55%, LA normal size, bubble study -ve. - KEMAR: no evidence of intracardiac thrombus or vegetation, bubble study nega tive. - Uncertain as to etiology of stroke, may be cryptogenic vs lacunar, however only has mild white matter disease on FLAIR sequence, which further raises possibility of embolic stroke. Therefore recommend for patient to have long-term cardiac monitoring as outpatient with either 30-day MCOT or ILR. - Aspirin 81 mg daily. Atorvastatin 40 mg daily. PT/OT/ST Telemetry monitoring while in-house. LDL 77 Hemoglobin A1c 5.7. DVT prophylaxis: Recommend Lovenox. - Recommend outpatient follow up with neurology in 3-4 weeks. 2. Blood pressure: - Recommend target of normotension, as it has been >48 hours since onset of symptoms. - Will sign off, as I am not covering neurology service over the weekend. Please consult neurologist covering weekend for further neurologic monitoring and man agement. Thank you for allowing me to take part in the care of this patient. Steffen Santos MD Neurology Subjective Date of service: 04/26/19 Principal diagnosis: Stroke Interval history: No acute events overnight. Objective - Exam Narrative Exam: Patient is awake, alert, oriented is 4. Follows complex commands. Noted to have dysarthria. No aphasia noted. Pupils equal, round, reactive to light, visual aaron full, tongue midline, noted to have right facial droop, bilaterally intact to light touch. Right upper and lower extremity strength is 4/5, left upper and lower extremity strength is 5 out of 5. Bilaterally intact to light touch. Bilaterally intact to finger to nose and heel to silver. Reflexes 2+ throughout. - Vital Sign Vital Signs - 12hr 04/26/19 04/26/19 04/26/19 07:51 10:18 10:25 Temperature 98.6 F Temperature [ Post-Procedure] Pulse Rate Pulse Rate [ 88 79 Intra-Procedure ] Pulse Rate [ Post-Procedure] Respiratory 18 Rate Respiratory 20 22 Rate [Intra- Procedure] Respiratory Rate [Post- Procedure] Blood Pressure 142/70 Blood Pressure 188/86 264/140 [Intra- Procedure] Blood Pressure [Post-Procedure ] O2 Sat by Pulse 98 93 Oximetry [ Intra-Procedure ] O2 Sat by Pulse Oximetry [Post -Procedure] 04/26/19 04/26/19 04/26/19 10:30 10:40 10:46 Temperature Temperature [ 99 F Post-Procedure] Pulse Rate Pulse Rate [ 92 H Intra-Procedure ] Pulse Rate [ 79 80 Post-Procedure] Respiratory Rate Respiratory 24 Rate [Intra- Procedure] Respiratory 23 23 Rate [Post- Procedure] Blood Pressure Blood Pressure 258/119 [Intra- Procedure] Blood Pressure 173/79 170/77 [Post-Procedure ] O2 Sat by Pulse 96 Oximetry [ Intra-Procedure ] O2 Sat by Pulse 99 100 Oximetry [Post -Procedure] 04/26/19 04/26/19 04/26/19 10:50 10:55 12:00 Temperature Temperature [ Post-Procedure] Pulse Rate 65 Pulse Rate [ Intra-Procedure ] Pulse Rate [ 73 74 Post-Procedure] Respiratory Rate Respiratory Rate [Intra- Procedure] Respiratory 23 21 Rate [Post- Procedure] Blood Pressure Blood Pressure [Intra- Procedure] Blood Pressure 168/71 167/78 [Post-Procedure ] O2 Sat by Pulse Oximetry [ Intra-Procedure ] O2 Sat by Pulse 97 96 Oximetry [Post -Procedure] 04/26/19 13:57 Temperature Temperature [ Post-Procedure] Pulse Rate 74 Pulse Rate [ Intra-Procedure ] Pulse Rate [ Post-Procedure] Respiratory Rate Respiratory Rate [Intra- Procedure] Respiratory Rate [Post- Procedure] Blood Pressure 167/78 Blood Pressure [Intra- Procedure] Blood Pressure [Post-Procedure ] O2 Sat by Pulse Oximetry [ Intra-Procedure ] O2 Sat by Pulse Oximetry [Post -Procedure] - General Apperance Constitutional: comfortable - EENT EENT: ATNC, PERRL, mucous membranes moist, hearing intact, vision intact - Respiratory Respiratory: lungs clear, normal breath sounds - Cardiovascular Cardiovascular: regular rate, normal S1, normal S2 Extremities: no peripheral edema bilat - Gastrointestinal Gastrointestinal: normoactive bowel sounds, soft, non-tender - Integumentary Integumentary: normal - Psychiatric Psychiatric: mood/affect appropriate - Laboratory Findings CBC and BMP: 04/25/19 07:07 04/25/19 05:05 Abnormal Lab Findings: Abnormal Labs 04/23/19 04/23/19 04/23/19 21:32 21:32 21:32 WBC 11.9 H Granite % (Auto) 8.1 H Eos % (Auto) Granite # 1.0 H Eos # Thrombin Time 14.6 L Potassium 3.2 L Glucose 126 H HDL Cholesterol 04/25/19 04/25/19 05:05 07:07 WBC Granite % (Auto) 8.3 H Eos % (Auto) 5.5 H Granite # Eos # 0.5 H Thrombin Time Potassium Glucose HDL Cholesterol 38 L
== END 2019-04-26 18:00 | disposition home or self-care (01) | DRG 65 ==
LOC: ED 20:46 → OBSVTOIN 04-24 02:54 → 4A 04-24 02:54 → INTOOBSV 04-24 02:54
PROVIDERS: ADMIT Internal Medicine; ATTEND Internal Medicine
DX: I63.49 Cerebral infarction due to embolism of other cerebral artery (principal); G81.91 Hemiplegia, unspecified affecting right dominant side; I10 Essential (primary) hypertension; E87.6 Hypokalemia; E78.5 Hyperlipidemia, unspecified; R29.810 Facial weakness; R47.81 Slurred speech; R29.703 NIHSS score 3; E66.9 Obesity, unspecified; Z82.3 Family history of stroke; Z82.49 Family history of ischemic heart disease and other diseases of the circulatory system; Z87.891 Personal history of nicotine dependence; Z68.38 Body mass index [BMI] 38.0-38.9, adult
CPT/HCPCS: 36415; 70450; 70544; 70551; 71046; 80048; 80061; 80307; 81001; 83036; 84132; 84484; 85025; 85610; 85670; 85730; 87040; 93005; 93010; 93306; 93312; 93320; 93325; 93880; G0378; A9270-GY; J0360; J1650; J2704; J7040